=== PATIENT | female | born 1960 | race Caucasian/White ===

== ENCOUNTER → 2017-11-27 | Outpatient (CLI) | payer OTHER | END | disposition home or self-care (01) | LOC: KCIC 15:13 | DX: R05 Cough (principal); Z87.891 Personal history of nicotine dependence | CPT/HCPCS: 71046 ==

== ENCOUNTER → 2017-12-20 | Outpatient (CLI) | payer OTHER ==
[2017-12-20] MEDS: IOHEXOL 300 MG/ML 100ML VIAL. IV ×2 (14:01)
== END | disposition home or self-care (01) ==
LOC: KCIC CT 13:38
DX: I25.10 Atherosclerotic heart disease of native coronary artery without angina pectoris (principal); R91.8 Other nonspecific abnormal finding of lung field
CPT/HCPCS: 71260; Q9967

== ENCOUNTER 2017-12-30 07:03 | Outpatient (CLI) | payer OTHER ==
[2017-12-30 07:29] LABS: ADD MAN DIFF? NO
[2017-12-30 07:34] LABS: BASO # 0.2 x10^3/uL (0.0-0.2); BASO % 3 % (0-3); EOS # 0.2 x10^3/uL (0.0-0.7); EOS % 2 % (0-3); HEMATOCRIT 39.2 % (36.0-47.0); HEMOGLOBIN 13.3 g/dL (12.0-15.5); LYMPH # 1.8 x10^3/uL (1.0-4.8); LYMPH % 20 % (24-48); MEAN CORPUSCULAR HEMOGLOBIN 31 pg (25-35); MEAN CORPUSCULAR HGB CONC 34 g/dL (31-37); MEAN CORPUSCULAR VOLUME 91 fL (79-100); MONO % 11 % (0-9); NEUT # 5.7 x10^3uL (1.8-7.7); NEUT % 65 % (31-73); PLATELET COUNT 322 x10^3/uL (140-400); RED BLOOD COUNT 4.33 x10^6/uL (3.50-5.40); RED CELL DISTRIBUTION WIDTH 13.3 % (11.5-14.5); WHITE BLOOD COUNT 8.8 x10^3/uL (4.0-11.0)
[2017-12-30 07:48] LABS: PARTIAL THROMBOPLASTIN TIME 26 SEC (24-38); PROTHROMBIN TIME PATIENT 12.1 SEC (11.7-14.0)
[2017-12-30] MEDS ORDERED: GELATIN SPONGE SIZE 12-7MM SPONGE. ×2 (07:56)
[2017-12-30] MEDS ORDERED: LIDOCAINE WITH 8.4% SOD BICARB 3 ML DISP.SYRIN. ×2 (07:56)
[2017-12-30] MEDS ORDERED: FLUMAZENIL 0.5 MG/5 ML VIAL. IV ×2 (08:35)
[2017-12-30] MEDS ORDERED: NALOXONE 0.4 MG/ML VIAL. ×2 (08:35)
[2017-12-30] MEDS ORDERED: fentaNYL PF VIAL 100 MCG/2 ML VIAL ×2 (08:35)
[2017-12-30] MEDS ORDERED: MIDAZOLAM HCL/PF 2 MG/2 ML VIAL. ×2 (08:35)
[2017-12-30] MEDS: LIDOCAINE WITH 8.4% SOD BICARB 3 ML DISP.SYRIN. IJ ×2 (09:15)
[2017-12-30] MEDS: fentaNYL PF VIAL 100 MCG/2 ML VIAL IV ×2 (09:15)
[2017-12-30] MEDS: MIDAZOLAM HCL/PF 2 MG/2 ML VIAL. IV ×2 (09:15)
== END 2017-12-30 12:30 | disposition home or self-care (01) ==
LOC: INTRAD 07:03
DX: R91.8 Other nonspecific abnormal finding of lung field (principal); Z79.01 Long term (current) use of anticoagulants; Z88.6 Allergy status to analgesic agent; Z88.8 Allergy status to other drugs, medicaments and biological substances
CPT/HCPCS: 32405; 36415; 71046; 77012; 85025; 85610; 85730; 88305; 88341; 88342; 99152; 99153; J2250; J3010

== ENCOUNTER → 2018-01-02 | Outpatient (CLI) | payer OTHER | END | disposition home or self-care (01) | LOC: PETSC 08:56 | DX: R91.8 Other nonspecific abnormal finding of lung field (principal) | CPT/HCPCS: 78815; A9552 ==

== ENCOUNTER → 2018-05-12 | Outpatient (CLI) | payer OTHER | END | disposition home or self-care (01) | LOC: ECHO 09:05 | DX: Z01.810 Encounter for preprocedural cardiovascular examination (principal); Z79.01 Long term (current) use of anticoagulants; Z87.891 Personal history of nicotine dependence | CPT/HCPCS: 93306 ==

== ENCOUNTER → 2018-08-26 | Day surgery (SDC) | payer OTHER ==
[~2018-08-26] MED LIST: CLON0.1T PO; DOXE50CA PO; ESOM40CA PO; IV RINGERS,LACTATED 1000ML 1,000 ML IV SCH; LIDOCAINE 1% PF 2 ML VIAL. ID PRN; LOSA1TAB25 PO; MIDAZOLAM HCL/PF 2 MG/2 ML VIAL. IV PRN; OXYC-323 PO; PROPOFOL 40 ML IV ONE; RANI150C PO; RANI300C PO; SIMV10TA3 PO; UMEC62.5 IH; fentaNYL PF VIAL 100 MCG/2 ML VIAL IV PRN
[2018-08-26 17:28] VITALS: BP 171/91
== END | disposition home or self-care (01) ==
LOC: ENDOS 16:06
PROVIDERS: ATTEND Internal Medicine Gastroenterology
DX: K57.30 Diverticulosis of large intestine without perforation or abscess without bleeding (principal); K64.1 Second degree hemorrhoids; K21.9 Gastro-esophageal reflux disease without esophagitis; I10 Essential (primary) hypertension; E78.00 Pure hypercholesterolemia, unspecified; Z86.19 Personal history of other infectious and parasitic diseases; Z85.118 Personal history of other malignant neoplasm of bronchus and lung; Z79.899 Other long term (current) drug therapy; Z90.49 Acquired absence of other specified parts of digestive tract; Z90.710 Acquired absence of both cervix and uterus; Z98.890 Other specified postprocedural states; Z88.5 Allergy status to narcotic agent; Z88.6 Allergy status to analgesic agent; Z82.49 Family history of ischemic heart disease and other diseases of the circulatory system; Z83.3 Family history of diabetes mellitus
CPT/HCPCS: 45378; J2704

== ENCOUNTER 2018-09-19 08:56 | Day surgery (SDC) | payer OTHER ==
[~2018-09-19] VITALS: Ht 163.8 cm; Wt 79.8 kg
[~2018-09-19 08:56] MED LIST changes: -MIDAZOLAM HCL/PF 2 MG/2 ML VIAL. IV PRN; +ONDANSETRON PF 4 MG/2 ML VIAL. IV PRN; -OXYC-323 PO; +PROCHLORPERAZINE 10 MG/2 ML VIAL. IV PRN; -PROPOFOL 40 ML IV ONE
[2018-09-19] MEDS ORDERED: NEOMY/BACITR/POLYMYXIN OINT PACKET. TP ONE ×3 (09:14→09:15)
[2018-09-19] MEDS ORDERED: BUPIVACAINE-EPI 0.5%-1:200000 50 ML VIAL. ONE (09:14)
[2018-09-19] MEDS ORDERED: PROPOFOL 20 ML IV ONE (09:34)
[2018-09-19] MEDS ORDERED: fentaNYL PF VIAL 100 MCG/2 ML VIAL ONE (09:35)
[2018-09-19] MEDS ORDERED: ONDANSETRON PF 4 MG/2 ML VIAL. ONE (10:08)
[2018-09-19] MEDS ORDERED: DEXAMETHASONE SOD PHOS 20 MG/5 ML VIAL. ONE (10:08)
--- NOTE | 2018-09-19 10:14 | PDOC4 ---
Operative Note Operative Note Date: 09/19/2018 Preoperative diagnosis: Internal hemorrhoids Postoperative diagnosis: Same Procedure: Hemorrhoidectomy Surgeon: Ralph Specimen: Hemorrhoid Dictation: Patient is a 58-year-old female is had problems with hemorrhoids for quite some time most recently hemorrhoids been getting larger causing pain with bleeding nearly every time she had a bowel movement she did have a colonoscopy recently which was normal other than the hemorrhoids. Procedure of hemorrhoidectomy was explained to the patient detail was benefits were also discussed including bleeding infection alternatives to this procedure also discussed with patient seemed understanding gave both verbal and written consent to have the procedure performed. Patient was taken to the operating room placed in supine position general anesthesia was initiated once patient was asleep and intubated is placed in low lithotomy positioning and her peritoneum was prepped and draped usual sterile fashion using Betadine scrub and solution. Area around the hemorrhoid which was at the 7 o'clock position was injected with quarter percent Marcaine with epinephrine once this was injected the hemorrhoid was grasped with an Allis clamp and was excised using the Harmonic scalpel. Wound was then dressed with triple antibiotic ointment and 4 x 4's ABDs and mesh panties. Patient was waken next made in the operating room taken recovery in stable condition all sponge instrument needle counts listed as correct estimate blood loss 5 mL. ALETHA PONCE MD Sep 19, 2018 10:14
--- NOTE | 2018-09-19 10:15 | DISCH ---
DISCHARGE INSTRUCTIONS Condition on Discharge Condition on Discharge: Stable Activity After Discharge Activity Instructions for Disc: Activity as tolerated Lifting Instructions after Dis: No heavy lifting Exercise Instruction after Dis: Progress as tolerated Diet after Discharge Diet after Discharge: Regular Wound Incision Care Other wound/incision instructi: May shower in 24 hours Contacting the DRKourtney after DC Call your doctor for: If your condition worsens Follow-Up Follow up with: Dr. Ponce in 2 weeks ALETHA PONCE MD Sep 19, 2018 10:15
[2018-09-19 10:35] VITALS: BP 120/63
[2018-09-19] MEDS ORDERED: OXYC-323 PO (10:40)
[2018-09-19] MEDS ORDERED: oxyCODONE/APAP 5/325 1 TAB TABLET ONE (10:44)
[2018-09-19] MEDS ORDERED: oxyCODONE/APAP 5/325 1 TAB TABLET PO ONE (11:00)
--- NOTE | 2018-09-22 14:08 | PATHOLOGY ---
[facility] Accession Number: [id number] . 01 Material submitted: . HEMORRHOID . 01 Clinician provided ICD-10: K64.9 . 01 Clinical history: . Hemorrhoid . 02 Diagnosis: Squamous and glandular mucosa, "hemorrhoid", hemorrhoidectomy: - Dilated congested vessels consistent with hemorrhoid. - Overlying reactive squamous and glandular mucosa. - There is no evidence of atypia or malignancy. 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 02 Electronically signed: . Harshal Thompson MD, Pathologist NPI- [id number] . 01 Gross description: . The specimen is received in formalin, labeled "Ding, Jeromy, hemorrhoid" and consists of a segment of pink-alvarado epithelial covered tissue measuring 2.6 x 2.0 x 1.2 cm. The surface appears intact without gross lesions. Sectioning reveals dilated vascular spaces containing blood clot. A entry level account representative section is submitted in A1. (SDY; 09/19/2018) SYU/SYU . 02 Pathologist provided ICD-10: K64.8 . 02 CPT . 297219 Specimen Comment: A courtesy copy of this report has been sent to Specimen Comment: [phone], . Specimen Comment: Report sent to / DR RITCHIE Specimen Comment: A duplicate report has been generated due to demographic updates. Performed at: 01 [facility] [address], [place] [id number] MD Enrike Rosas MD Phone: [phone] Performed at: 02 [facility] [address] [place], [place] [id number] MD Doug Escalante MD Phone: [phone]
== END 2018-09-19 11:20 | disposition home or self-care (01) ==
LOC: SURG 08:56
PROVIDERS: ATTEND Surgery
DX: K64.1 Second degree hemorrhoids (principal); I10 Essential (primary) hypertension; Z86.19 Personal history of other infectious and parasitic diseases; K21.9 Gastro-esophageal reflux disease without esophagitis; J44.9 Chronic obstructive pulmonary disease, unspecified; Z90.710 Acquired absence of both cervix and uterus; Z98.890 Other specified postprocedural states; Z79.899 Other long term (current) drug therapy; Z90.49 Acquired absence of other specified parts of digestive tract; Z83.3 Family history of diabetes mellitus; Z82.0 Family history of epilepsy and other diseases of the nervous system; Z82.49 Family history of ischemic heart disease and other diseases of the circulatory system; Z83.6 Family history of other diseases of the respiratory system; Z87.891 Personal history of nicotine dependence; Z88.6 Allergy status to analgesic agent; Z88.5 Allergy status to narcotic agent
CPT/HCPCS: 46255; 88304; A7015; J0690; J1100; J2405; J2704; J3010; A4461

== ENCOUNTER → 2019-07-15 | Outpatient (CLI) | payer OTHER ==
[~2019-07-15] MED LIST changes: -IV RINGERS,LACTATED 1000ML 1,000 ML IV SCH; -LIDOCAINE 1% PF 2 ML VIAL. ID PRN; -ONDANSETRON PF 4 MG/2 ML VIAL. IV PRN; +OXYC1TAB15 PO; -PROCHLORPERAZINE 10 MG/2 ML VIAL. IV PRN; -fentaNYL PF VIAL 100 MCG/2 ML VIAL IV PRN
--- NOTE | 2019-07-15 14:34 | KCIC ---
Bilateral digital screening mammograms: Reason for examination: Routine baseline screening. Interpretation was made with the benefit of CAD. The skin and nipples show no abnormalities. No abnormal axillary lymph nodes are seen. The breast parenchyma shows scattered fibroglandular density. (Breast density: Category B.) There are no dominant masses, suspicious calcifications or architectural distortions. A few benign-appearing calcifications are seen in the left breast. Impression: No evidence of malignancy. Recommend routine screening. BI-RADS Category 2: Benign. "Our facility is accredited by the [employer] Mammography [employer]." This patient's information has been entered into a reminder system for the patient to be notified with the results of her examination and a target date for the next mammogram. Electronically signed by: Mercedes Olsen MD (07/15/2019 2:31 PM) [id number]
== END | disposition home or self-care (01) ==
LOC: KCIC MAMMO 13:46
PROVIDERS: ATTEND Family Medicine
DX: Z12.31 Encounter for screening mammogram for malignant neoplasm of breast (principal); N64.89 Other specified disorders of breast
CPT/HCPCS: 77067

== ENCOUNTER → 2020-10-10 | Outpatient (CLI) | payer OTHER ==
[~2020-10-10] MED LIST changes: +SIMV10TA15 PO; -SIMV10TA3 PO
--- NOTE | 2020-10-10 16:26 | KCIC ---
Bilateral digital screening mammograms: Reason for examination: Routine screening. Comparison is made to previous study dated 07/15/2019. Interpretation is made with the benefit of CAD. The skin and nipples show no abnormalities. No abnormal lymph nodes are seen. The breast parenchyma is predominantly fatty. (Breast density: Category A.) There are some calcifications at the 6:00 B position of the left breast. Further evaluation with coned magnification views is recommended. There are no other new dominant masses, suspicious calcifications or architectural distortions. Impression: Clustered calcifications at the 6:00 B position of the left breast. Recommend further evaluation with coned magnification views in CC and true lateral projections. BI-RADS Category 0: Incomplete. Needs additional imaging evaluation. "Our facility is accredited by the [employer] Mammography [employer]." This patient's information has been entered into a reminder system for the patient to be notified with the results of her examination and a target date for the next mammogram. Electronically signed by: Mercedes Olsen MD (10/10/2020 4:23 PM) [id number]
== END ==
LOC: KCIC MAMMO 15:45
PROVIDERS: ATTEND Family Medicine
DX: Z12.31 Encounter for screening mammogram for malignant neoplasm of breast (principal); N64.89 Other specified disorders of breast
CPT/HCPCS: 77067

== ENCOUNTER → 2020-10-18 | Outpatient (CLI) | payer OTHER ==
--- NOTE | 2020-10-18 11:53 | RAD ---
EXAMINATION: MAMMO PATRICE DIAG LT History: Reason: ABNORMAL MAMMOGRAM CALLBACK / Spl. Instructions: / History: COMPARISON/CORRELATION: None Technique: Diagnostic left unilateral digital mammogram views were obtained. CAD was utilized. 3-D tomosynthesis images were acquired. Findings: Breast Tissue Density B : There are scattered areas of fibroglandular density. There are no dominant masses, suspicious microcalcifications, or architectural distortion. Calcifications reported on the screening examination within the lower left breast are within the skin on tomographic images. IMPRESSION: No mammographic evidence of malignancy. Recommend routine screening. BI-RADS category 1: Negative. The images were reviewed with computer aided detection. Patient information is entered into the reminder system with a target due date for the next screening mammogram. Mammography is the most sensitive method for finding small breast cancers, but it does not detect them all and is not a substitute for careful clinical examination. A negative mammogram does not negate a clinically suspicious finding and should not result in delay in biopsying a clinically suspicious abnormality. "Our facility is accredited by the [employer] Mammography [employer] Electronically signed by: Espinoza Contreras MD (10/18/2020 11:50 AM) [facility]
== END ==
LOC: MAMMO 10:27
PROVIDERS: ATTEND Family Medicine
DX: R92.2 Inconclusive mammogram (principal)
CPT/HCPCS: 77065; G0279; 77061